=== PATIENT | female | born 1935 | race Caucasian/White ===

== ENCOUNTER → 2016-07-11 | Outpatient (CLI) | payer MEDICARE, OTHER ==
[~2016-07-11] MED LIST: ADVIL200 MG PO; ASPI325T6 PO; ASPIRIN E.C. 8181 MG PO; BENADRYL25 M2 PO; CALTRATE-600 W600 MG PO; CARDI-OMEGA1000 MG PO; CETAPHIL1 CRE TP; CO ENZYME Q-1050 MG PO; COUMADIN10 MG PO; COUMADIN5 MG PO; CRESTOR20 MG PO; ESTRADIOL0.5 MG PO; FLAXSEED OIL1000 MG PO; GLUCOSAMINE & C1 TA1 PO; HCTZ 25MG TAB25 MG PO; HCTZ12.5TAB PO; LIPITOR 10MG10 MG PO; LIPITOR40 MG PO; LOPRESSOR 225 MG/TAB PO; MAGNESIUM250 MG PO; MELATONIN5 M1 SL; MILK OF MA400 MG/5 M PO; MOTRIN JUNIOR100 M1 PO; MULTAQ400 MG PO; MULTIPLE VITAMI1 CAP PO; MULTIPLE VITAMI1 TAB PO; NORCO 325 MG-7.1 TAB PO; PEPTO BISMOL262 MG PO; PLAVIX 75MG TAB75 MG PO; POTASSIUM99 MG PO; PRADAXA150 MG PO; PRAVASTATIN SOD10 MG PO; PREMARIN 0.60.625 MG PO; PREVACID 15MG15 M1 PO; PRILOSEC 20MG20 MG PO; ROXICODONE 55 MG/TAB PO; SENOKOT8.6 MG PO; SINUTAB PO; TIKOSYN0.5 MG PO; TUMS500 MG PO; TYLENOL 325MG325 MG PO; TYLENOL ARTHRI650 M1 PO; TYLENOL SINUS 31 TAB PO; VITAMIN C500 MG PO; VITAMIN COMPLEX1 TA1 PO; VITAMIN D32000 IU PO; [UNRECOGNIZED DRUG - OTHER] PO; tambocor PO
== END ==
LOC: COL.RAD 07-08 13:00
DX: M79.645 Pain in left finger(s) (principal); M79.644 Pain in right finger(s); M19.042 Primary osteoarthritis, left hand; M19.041 Primary osteoarthritis, right hand
CPT/HCPCS: J3301; Q9967

== ENCOUNTER → 2017-02-19 | Outpatient (CLI) | payer MEDICARE, OTHER | LOC: COL.RAD 13:27 | DX: M18.0 Bilateral primary osteoarthritis of first carpometacarpal joints (principal); M79.644 Pain in right finger(s) | CPT/HCPCS: J3301; Q9967 ==

== ENCOUNTER → 2017-04-08 | Outpatient (CLI) | payer MEDICARE, OTHER | LOC: COL.RAD 10:00 | DX: N28.89 Other specified disorders of kidney and ureter (principal) | CPT/HCPCS: Q9967 ==

== ENCOUNTER → 2017-10-02 | Outpatient (CLI) | payer MEDICARE, OTHER | LOC: COL.RAD 12:56 | DX: M18.0 Bilateral primary osteoarthritis of first carpometacarpal joints (principal) | CPT/HCPCS: J3301; Q9967 ==

== ENCOUNTER → 2017-12-28 | Outpatient (CLI) | payer MEDICARE, OTHER | LOC: MC.RAD 13:47 | DX: Z12.31 Encounter for screening mammogram for malignant neoplasm of breast (principal) ==

== ENCOUNTER → 2018-06-30 | Outpatient (CLI) | payer MEDICARE, OTHER | LOC: COL.RAD 07:59 | DX: M19.041 Primary osteoarthritis, right hand (principal); M19.042 Primary osteoarthritis, left hand | CPT/HCPCS: J3301; Q9967 ==

== ENCOUNTER → 2018-10-05 | Outpatient (CLI) | payer MEDICARE, OTHER | LOC: COL.RAD 09:43 | DX: N30.20 Other chronic cystitis without hematuria (principal) ==

== ENCOUNTER 2020-05-24 13:41 | Emergency (ER) | payer MEDICARE, OTHER ==
[~2020-05-24] VITALS: Ht 165.1 cm; Wt 81.4 kg
[2020-05-24 13:45] VITALS: TEMP 97.9
[2020-05-24 14:30] LABS: BASO # 0.1 (0.0-0.2); BASO % 1.2 % (0.0-2.0); EOS # 0.2 (0.0-0.7); EOS % 2.2 % (0-4.0); GRAN # 4.5 (1.4-6.5); GRAN % 61.7 % (42.2-75.2); HEMATOCRIT 38.7 % (37.0-47.0); HEMOGLOBIN 12.8 g/dl (12.5-16.0); LYMPH # 1.7 (1.2-3.4); LYMPH % 24.1 % (20.0-51.0); MEAN CELL VOLUME 90 fl (80.0-100.0); MEAN CORPUSCULAR HEMOGLOBIN 30 pg (27.0-31.0); MEAN CORPUSCULAR HGB CONC 33 g/dl (33.0-37.0); MEAN PLATELET VOLUME 9.2 fl (7.4-10.4); MONO # 0.7 (0.1-0.6); MONO % 9.7 % (1.7-9.3); PLATELET COUNT 223 K/mm3 (130-400); RED BLOOD COUNT 4.31 M/mm3 (4.10-5.30); REDCELL DISTRIBUTION WIDTH-CV 13.8 % (11.5-14.5)
[2020-05-24 14:33] LABS: MUCOUS Present /lpf; PH 7 (5-8); SQUAMOUS EPITHELIAL 0-2 /hpf; URINE APPEARANCE Hazy; URINE BACTERIA None Seen /hpf; URINE BILIRUBIN Negative (NEGATIVE); URINE BLOOD Negative (NEGATIVE); URINE COLOR Yellow; URINE GLUCOSE Negative (NEGATIVE); URINE KETONE Negative (NEGATIVE); URINE LEUKOCYTE ESTERASE Negative (NEGATIVE); URINE NITRATE Negative (NEGATIVE); URINE PROTEIN(semi-quant) Negative (NEGATIVE); URINE RBC None Seen /hpf; URINE UROBILINOGEN Negative (NEGATIVE); URINE WBC 0-2 /hpf
[2020-05-24 14:39] LABS: ALBUMIN 4.8 gm/dL (3.5-5.0); BILIRUBIN,TOTAL 0.6 mg/dL (0.0-1.0); CALCIUM 9.7 mg/dL (8.4-10.2); CREATININE, serum 1.09 (0.52-1.25); POTASSIUM 4.4 mmol/L (3.4-5.0); TOTAL PROTEIN 8.2 gm/dL (6.4-8.2)
[2020-05-24 14:47] LABS: COLLECTION METHOD CLEAN CATCH
[2020-05-24] MEDS ORDERED: CAPSAICIN60 GM TP (16:03)
[2020-05-24] MEDS ORDERED: LIDODERM 5% PATC1 EA TP (16:03)
[2020-05-24 16:14] VITALS: BP 154/70; PULSE 88
== END 2020-05-24 16:17 | disposition home or self-care (01) ==
LOC: COL.ER 13:41
PROVIDERS: Emergency Medicine
DX: R74.8 Abnormal levels of other serum enzymes (principal); R10.32 Left lower quadrant pain; I10 Essential (primary) hypertension; Z88.2 Allergy status to sulfonamides; Z79.82 Long term (current) use of aspirin; Z90.49 Acquired absence of other specified parts of digestive tract; Z90.710 Acquired absence of both cervix and uterus

== ENCOUNTER → 2021-06-18 | Outpatient (CLI) | payer MEDICARE, OTHER ==
[~2021-06-18] MED LIST changes: +CAPSAICIN60 GM TP; +LIDODERM 5% PATC1 EA TP
== END ==
LOC: MC.RAD 10:45
DX: Z12.31 Encounter for screening mammogram for malignant neoplasm of breast (principal); Z98.82 Breast implant status